=== PATIENT | female | born 1945 | race Caucasian/White ===

== ENCOUNTER 2020-10-04 09:27 | Outpatient (REF) | payer MEDICARE, SELFPAY ==
[2020-10-04 10:46] LABS: Baso%MD 0.7 %; Eos%MD 1.7 %; Hematocrit 40.4 % (37-47); Hemoglobin 12.1 g/dl (12.0-16.0); IG%MD 0.2 %; Lymph%MD 36.5 %; Mean Corpuscular Hemoglobin 24.8 pg (27.0-33.0); Mean Corpuscular Volume 82.8 fL (80-98); Mean Platelet Volume 9.5 fL (9.4-12.3); Mono%MD 8.9 %; Platelet Count 308 X10*3/uL (160-400); Red Blood Count 4.88 X10*6/uL (4.20-5.50); White Blood Count 5.9 X10*3/uL (4.8-10.8)
[2020-10-04 11:11] LABS: Alanine Aminotransferase 19 U/L (0-31); Albumin Level 4.2 g/dL (3.5-5.0); Alkaline Phosphatase 72 U/L (39-117); Anion Gap 15 (12-20); Aspartate Amino Transferase 19 U/L (5-31); Bilirubin Total 0.4 mg/dL (0.0-1.0); Blood Urea Nitrogen 22 mg/dL (9-16); Calcium 8.9 mg/dL (8.4-10.2); Carbon Dioxide 27 mmol/L (22-29); Chloride 105 mmol/L (96-108); Cholesterol 228 mg/dL; Estimated Glomerular Filt Rate 59; Glucose Fasting 95 mg/dL (60-99); HDL Cholesterol 37 mg/dL; LDL Cholesterol Calculated 155 mg/dl; Potassium 4.7 mmol/l (3.3-5.1); Sodium 142 mmol/L (135-145); Total Protein 7.6 g/dL (6.5-8.0); Triglycerides 183 mg/dL
[2020-10-04 11:33] LABS: Folate 16.8 ng/mL (> or = 4.0); Vitamin B12 485 pg/mL (200-900)
[2020-10-04 12:03] LABS: Eosinophils Absolute Manual 0.1 X10*3/UL (0.0-0.8); Eosinophils Percent Manual 1 % (0-4); Lymphocytes Percent Manual 34 % (20-40); Monocytes Absolute Manual 0.8 X10*3/uL (0.0-1.2); Monocytes Percent Manual 13 % (2-11); Neutrophils Percent Manual 52 % (45-73)
[2020-10-04 12:09] LABS: Platelet Estimate NORMAL (NORMAL); Platelet Morphology Comment NORMAL; RBC Morphology NORMAL
[2020-10-04 12:23] LABS: Band Neutrophils Percent 0 % (3-5); Neutrophils Absolute Manual 3.1 X10*3/uL (2.2-7.9)
== END 2020-10-04 09:28 | disposition home or self-care (01) ==
LOC: HO.LAB 09:27
PROVIDERS: PCP Internal Medicine; Visit Provider Internal Medicine
DX: D51.0 Vitamin B12 deficiency anemia due to intrinsic factor deficiency (principal); E78.2 Mixed hyperlipidemia
CPT/HCPCS: 36415; 80053; 80061; 82607; 82746; 85007; 85027

== ENCOUNTER 2020-12-19 15:38 | Outpatient (REF) | payer MEDICARE, SELFPAY ==
--- NOTE | ~2020-12-19 | MM_ITS ---
EXAMINATION: MM SCREENING DIGITAL BREAST TOMOSYNTHESIS, BILATERAL CLINICAL INFORMATION: Screening. Asymptomatic. The lifetime risk of breast cancer based on the Tyrer-Cuzick Model is 1.3%. COMPARISON: Mammography: July 27, 2019 and studies dating back to June 21, 2008 TECHNIQUE: Digital breast tomosynthesis is performed in both the craniocaudal and mediolateral oblique views along with computer-aided detection (CAD). Synthesized 2D images are generated from the tomosynthesis. FINDINGS: The breasts are almost entirely fatty (ACR BI-RADS breast composition Category a). There are no significant masses, abnormal calcifications, or other abnormalities. There are stable circumscribed densities bilaterally. MM/MM tomosynthesis screening BI IMPRESSION: There are no significant changes from prior study. ASSESSMENT: BI-RADS 1: Negative RECOMMENDATION: Routine annual mammography screening. This patient's information was entered into a reminder system with a target due date for their next mammogram.
== END 2020-12-19 15:39 | disposition home or self-care (01) ==
LOC: HO.MAMMO 15:38
PROVIDERS: Visit Provider Internal Medicine
DX: Z12.31 Encounter for screening mammogram for malignant neoplasm of breast (principal)
CPT/HCPCS: 77063; 77067

== ENCOUNTER 2021-05-30 08:39 | Outpatient (REF) | payer MEDICARE, SELFPAY ==
[2021-05-30 10:09] LABS: Alanine Aminotransferase 17 U/L (0-31); Albumin Level 4.1 g/dL (3.5-5.0); Alkaline Phosphatase 73 U/L (39-117); Anion Gap 16 (12-20); Aspartate Amino Transferase 19 U/L (5-31); Bilirubin Total 0.5 mg/dL (0.0-1.0); Blood Urea Nitrogen 19 mg/dL (9-16); Calcium 9.3 mg/dL (8.4-10.2); Carbon Dioxide 25 mmol/L (22-29); Chloride 107 mmol/L (96-108); Cholesterol 141 mg/dL; Estimated Glomerular Filt Rate 55; Glucose Fasting 106 mg/dL (60-99); HDL Cholesterol 32 mg/dL; LDL Cholesterol Calculated 86 mg/dl; Potassium 4.6 mmol/L (3.3-5.1); Sodium 143 mmol/L (135-145); Total Protein 7.3 g/dL (6.5-8.0); Triglycerides 118 mg/dL
[2021-05-30 10:51] LABS: Folate 19.6 ng/mL (> or = 4.0); Vitamin B12 772 pg/mL (200-900)
[2021-06-04 13:01] LABS: Vitamin D 25-OH, D2 <4 ng/mL; Vitamin D 25-OH, D3 29 ng/mL; Vitamin D 25-OH, Total 29 ng/mL (30-100)
== END 2021-05-30 08:40 | disposition home or self-care (01) ==
LOC: HO.LAB 08:39
PROVIDERS: PCP Internal Medicine; Visit Provider Internal Medicine
DX: E78.5 Hyperlipidemia, unspecified (principal); I10 Essential (primary) hypertension; E55.9 Vitamin D deficiency, unspecified; D51.0 Vitamin B12 deficiency anemia due to intrinsic factor deficiency
CPT/HCPCS: 36415; 80053; 80061; 82306; 82607; 82746

== ENCOUNTER 2021-08-31 08:39 | Outpatient (REF) | payer MEDICARE, SELFPAY ==
--- NOTE | ~2021-08-31 | XR_ITS ---
EXAMINATION: FL BARIUM SWALLOW XR THORACIC SPINE CLINICAL INFORMATION: Dysphagia. Thoracic spine pain. COMPARISON: None TECHNIQUE: Routine barium swallow was performed in upright and lying positions. Thoracic spine 3 views. FINDINGS: BARIUM SWALLOW: Following oral administration of thick barium and barium-coated turkey in upright view, there is normal propagation of the bolus from the oral cavity, pharynx, esophagus into stomach without laryngeal penetration or aspiration. There is tertiary peristalsis seen in the mid and distal esophagus. No hiatal hernia or reflux is seen in upright view. Fluoroscopy time: 1.3 minutes DAP: 8.212 Gycm2 Images: 34 THORACIC SPINE: There is maintained thoracic kyphosis. The vertebral height and alignment are normal. There is mild loss of disc height in the upper mid thoracic spine with moderate ventral spondylosis in the mid and lower dorsal spine. No fracture, lytic or sclerotic process is seen. XR/XR thoracic spine 2V IMPRESSION: Unremarkable upright barium swallow exam except for occasional tertiary peristalsis in the mid and distal esophagus. Moderate ventral spondylosis mid and lower dorsal spine.
== END 2021-08-31 08:40 | disposition home or self-care (01) ==
LOC: HO.XRAY 08:39
PROVIDERS: Visit Provider Internal Medicine
DX: R13.10 Dysphagia, unspecified (principal); M54.6 Pain in thoracic spine
CPT/HCPCS: 72070; 74220

== ENCOUNTER 2021-11-13 09:04 | Outpatient (REF) | payer MEDICARE, SELFPAY ==
[2021-11-13 09:31] LABS: MANUAL DIFF FLAG NO
[2021-11-13 09:45] LABS: Basophils Percent Auto 0.3 % (0-2); Eosinophils Absolute Auto 0.1 X10*3/uL (0.0-0.4); Eosinophils Percent Auto 1.6 % (0-4); Hematocrit 40.9 % (37.0-47.0); Hemoglobin 12.3 g/dl (12.0-16.0); Imm Gran Abs Auto 0.01 X10*3/uL (0.00-0.03); Imm Gran Pct Auto 0.2 % (0.0-0.4); Lymphocytes Absolute Auto 2.1 X10*3/uL (1.2-4.9); Lymphocytes Percent Auto 34.9 % (20-40); Mean Corpuscular HGB Conc 30.1 g/dl (31.0-35.0); Mean Corpuscular Hemoglobin 24.8 pg (27.0-33.0); Mean Corpuscular Volume 82.5 fL (80.0-98.0); Mean Platelet Volume 9.2 fL (9.4-12.3); Monocytes Absolute Auto 0.4 X10*3/uL (0.1-1.2); Monocytes Percent Auto 7.2 % (2-11); Neutrophils Absolute Auto 3.4 x10*3/uL (2.0-8.3); Neutrophils Percent Auto 55.8 % (45-73); Platelet Count 304 X10*3/uL (160-400); Red Blood Count 4.96 X10*6/uL (4.20-5.50); Red Cell Distribution Width 15.3 % (11.0-16.0); White Blood Count 6.1 X10*3/uL (4.8-10.8)
[2021-11-13 10:14] LABS: Alanine Aminotransferase 17 U/L (0-31); Albumin Level 4.2 g/dL (3.5-5.0); Alkaline Phosphatase 85 U/L (39-117); Anion Gap 13 (12-20); Aspartate Amino Transferase 16 U/L (5-31); Bilirubin Total 0.4 mg/dL (0.0-1.0); Blood Urea Nitrogen 26 mg/dL (9-16); Calcium 9.8 mg/dL (8.4-10.2); Carbon Dioxide 26 mmol/L (22-29); Chloride 107 mmol/L (96-108); Cholesterol 159 mg/dL; Estimated Glomerular Filt Rate 59; Glucose Fasting 101 mg/dL (60-99); HDL Cholesterol 33 mg/dL; LDL Cholesterol Calculated 96 mg/dl; Potassium 4.9 mmol/L (3.3-5.1); Sodium 141 mmol/L (135-145); Total Protein 7.8 g/dL (6.5-8.0); Triglycerides 151 mg/dL
[2021-11-13 10:53] LABS: Folate 18.1 ng/mL (> or = 4.0); Vitamin B12 817 pg/mL (200-900)
[2021-11-17 14:25] LABS: Vitamin D 25-OH, D2 <4 ng/mL; Vitamin D 25-OH, D3 37 ng/mL; Vitamin D 25-OH, Total 37 ng/mL (30-100)
== END 2021-11-13 09:05 | disposition home or self-care (01) ==
LOC: HO.LAB 09:04
PROVIDERS: PCP Internal Medicine; Visit Provider Internal Medicine
DX: D64.9 Anemia, unspecified (principal); E78.2 Mixed hyperlipidemia; E78.5 Hyperlipidemia, unspecified; E55.9 Vitamin D deficiency, unspecified; D51.0 Vitamin B12 deficiency anemia due to intrinsic factor deficiency
CPT/HCPCS: 36415; 80053; 80061; 82306; 82607; 82746; 85025

== ENCOUNTER 2021-11-19 15:13 | Outpatient (REF) | payer MEDICARE, SELFPAY ==
--- NOTE | ~2021-11-19 | US_ITS ---
EXAMINATION: US SOFT TISSUE NECK CLINICAL INFORMATION: Palpable lump over the skull. COMPARISON: Previous head CT most recent February 2019. Brain MRI February 2017. TECHNIQUE: Ultrasound of the scalp tissues is performed with high- frequency tay-scale imaging and color Doppler. FINDINGS: Palpable abnormality corresponds to a 1.3 x 1 x 0.6 cm hypoechoic lesion with posterior acoustic shadowing and well-demarcated anterior wall immediately adjacent to the skull. This is unchanged in size from previous head CT and brain MRI suggesting a benign finding. This may represent a complex cyst or epidermoid. US/US soft tiss head and/or neck IMPRESSION: 1.3 x 1 x 0.6 cm hypoechoic lesion with acoustic shadowing similar in size to previous old CT scans and brain MRI. This probably represents a complex sebaceous cyst or epidermoid.
== END 2021-11-19 15:14 | disposition home or self-care (01) ==
LOC: HO.US 15:13
PROVIDERS: PCP Internal Medicine; Visit Provider Nurse Practitioner Family
DX: R22.0 Localized swelling, mass and lump, head (principal)
CPT/HCPCS: 76536

== ENCOUNTER → 2021-12-12 09:40 | Outpatient (BNVA) | payer MEDICARE, SELFPAY | PROVIDERS: PCP Internal Medicine; Referring Provider Internal Medicine; Visit Provider Surgery | DX: R22.0 Localized swelling, mass and lump, head (principal) | CPT/HCPCS: 99202 ==

== ENCOUNTER 2021-12-25 08:27 | Outpatient (REF) | payer OTHER, SELFPAY ==
--- NOTE | ~2021-12-25 | MM_ITS ---
EXAMINATION: MM SCREENING DIGITAL BREAST TOMOSYNTHESIS, BILATERAL CLINICAL INFORMATION: Screening. Asymptomatic. The lifetime risk of breast cancer based on the Tyrer-Cuzick Model is 3%. COMPARISON: Mammography: 08/21/2021, 07/27/2019, 07/02/2018, 11/09/2016 TECHNIQUE: Digital breast tomosynthesis is performed in both the craniocaudal and mediolateral oblique views along with computer-aided detection (CAD). Synthesized 2D images are generated from the tomosynthesis. FINDINGS: There are scattered areas of fibroglandular density (ACR BI-RADS breast composition Category b). There are no significant masses, abnormal calcifications, or other abnormalities. There is chronic smooth nodule central left breast. The axilla and skin contours are unremarkable. No significant changes. MM/MM tomosynthesis screening BI IMPRESSION: No mammographic evidence of malignancy. ASSESSMENT: BI-RADS 2: Benign RECOMMENDATION: Routine annual mammography screening. This patient's information was entered into a reminder system with a target due date for their next mammogram.
== END 2021-12-25 08:28 | disposition home or self-care (01) ==
LOC: HO.MAMMO 08:27
PROVIDERS: PCP Internal Medicine; Visit Provider Internal Medicine
DX: Z12.31 Encounter for screening mammogram for malignant neoplasm of breast (principal)
CPT/HCPCS: 77063; 77067

== ENCOUNTER → 2022-01-01 09:00 | Outpatient (BNVA) | payer OTHER, SELFPAY | PROVIDERS: PCP Internal Medicine; Referring Provider Internal Medicine; Visit Provider Nurse Practitioner Family | DX: K59.01 Slow transit constipation (principal); K58.1 Irritable bowel syndrome with constipation; R13.19 Other dysphagia | CPT/HCPCS: 99202 ==

== ENCOUNTER → 2022-03-04 10:07 | Outpatient (BNVA) | payer MEDICARE, SELFPAY | PROVIDERS: PCP Internal Medicine; Visit Provider Nurse Practitioner Family | DX: Z01.818 Encounter for other preprocedural examination (principal); K58.1 Irritable bowel syndrome with constipation; K59.01 Slow transit constipation; R13.19 Other dysphagia | CPT/HCPCS: 99212 ==

== ENCOUNTER 2022-05-02 09:00 | Outpatient (REF) | payer OTHER, SELFPAY ==
--- NOTE | ~2022-05-02 | XR_ITS ---
EXAMINATION: XR humerus RT, XR shoulder RT min 2V CLINICAL INFORMATION: Reason for Exam M79.601 - Pain in right arm COMPARISON: None. TECHNIQUE: Four views of the shoulder and 2 views of the humerus XR/XR shoulder RT min 2V FINDINGS/IMPRESSION: * No acute fracture or dislocation. * Moderate osteophytosis of the shoulder worst involving the acromioclavicular joint with loss of joint space and to a lesser extent the glenohumeral joint. * No soft tissue abnormality.
--- NOTE | ~2022-05-02 | XR_ITS ---
EXAMINATION: XR humerus RT, XR shoulder RT min 2V CLINICAL INFORMATION: Reason for Exam M79.601 - Pain in right arm COMPARISON: None. TECHNIQUE: Four views of the shoulder and 2 views of the humerus XR/XR humerus RT FINDINGS/IMPRESSION: * No acute fracture or dislocation. * Moderate osteophytosis of the shoulder worst involving the acromioclavicular joint with loss of joint space and to a lesser extent the glenohumeral joint. * No soft tissue abnormality.
--- NOTE | ~2022-05-02 | XR_ITS ---
EXAMINATION: XR CHEST 2 VIEWS CLINICAL INFORMATION: Dyspnea. COMPARISON: None. TECHNIQUE: Frontal and lateral views of the chest were obtained. FINDINGS: The heart size is at least top normal. The great vessels, pulmonary vasculature and mediastinum are normal. No congestive heart failure is seen. The lungs show no focal infiltrate, effusion or pneumothorax. There is biapical pleural thickening. There is no acute osseous abnormality. There is multi-level thoracic spondylosis. XR/XR chest 2V IMPRESSION: No active cardiopulmonary disease.
[2022-05-02 11:17] LABS: Alanine Aminotransferase 15 U/L (0-31); Albumin Level 4.2 g/dL (3.5-5.0); Alkaline Phosphatase 81 U/L (39-117); Anion Gap 16 (12-20); Aspartate Amino Transferase 17 U/L (5-31); Bilirubin Total 0.4 mg/dL (0.0-1.0); Blood Urea Nitrogen 21 mg/dL (9-16); Calcium 9.1 mg/dL (8.4-10.2); Carbon Dioxide 25 mmol/L (22-29); Chloride 105 mmol/L (96-108); Cholesterol 233 mg/dL; Estimated Glomerular Filt Rate > 60; Glucose Fasting 94 mg/dL (60-99); HDL Cholesterol 36 mg/dL; LDL Cholesterol Calculated 161 mg/dl; Potassium 5.1 mmol/L (3.3-5.1); Sodium 141 mmol/L (135-145); Total Protein 7.7 g/dL (6.5-8.0); Triglycerides 181 mg/dL
[2022-05-02 11:38] LABS: Vitamin D 25-OH Total 35.1 ng/mL (>30)
[2022-05-02 13:49] LABS: Folate 18.5 ng/mL (> or = 4.0); Vitamin B12 1020 pg/mL (200-900)
== END 2022-05-02 09:01 | disposition home or self-care (01) ==
LOC: HO.XRAY 09:00
PROVIDERS: PCP Internal Medicine; Visit Provider Internal Medicine
DX: D51.0 Vitamin B12 deficiency anemia due to intrinsic factor deficiency (principal); E78.5 Hyperlipidemia, unspecified; I10 Essential (primary) hypertension; M25.511 Pain in right shoulder; R06.00 Dyspnea, unspecified; M79.601 Pain in right arm; E55.9 Vitamin D deficiency, unspecified
CPT/HCPCS: 36415; 71046; 73030; 73060; 80053; 80061; 82306; 82607; 82746

== ENCOUNTER 2022-05-02 11:46 | Emergency (ER) | payer OTHER, SELFPAY ==
--- NOTE | ~2022-05-02 | CT_ITS ---
EXAMINATION: CT HEAD WITHOUT CONTRAST CLINICAL INFORMATION: Numbness in face. Dizziness. COMPARISON: CT head 02/23/2019 TECHNIQUE: Contiguous axial imaging was performed from the skull base to vertex without intravenous administration of contrast. Coronal and sagittal reformatted images are performed at CT scanner This CT examination was performed using dose optimization techniques as appropriate, variously including the following: *Automated exposure control *Adjustment of mA and/or kV according to patient size (this includes techniques or standardized protocols for targeted exams where dose is matched to indication/reason for exam; i.e. extremities or head) *Use of iterative reconstruction technique DLP: 657 mGy-cm FINDINGS: Focal encephalomalacia from old infarct in left parietal lobe unchanged since CAT scan 02/23/2019. There is no evidence of acute intracranial hemorrhage or acute territorial infarction. No abnormal mass effect or midline shift is seen. Quezada to white matter differentiation is well preserved. No extra-axial fluid collections are identified. There is generalized global volume loss. There is moderate prominence of the ventricles and the sulci . There is mild hypodensity of the periventricular white matter due to chronic small vessel ischemic disease. There are vascular calcifications of the internal carotid arteries bilaterally. The osseous structures and soft tissues are normal. The mastoid air cells and visualized portions of the paranasal sinuses are well aerated. CT/CT head/brain wo con IMPRESSION: No acute intracranial pathology.
[2022-05-02 12:07] VITALS: BP 180/81; PULSE 75; RESP 18; TEMP 36.8; O2SAT 96; BMI 34.7
[2022-05-02 12:22] LABS: Hematocrit 40.5 % (37.0-47.0); Hemoglobin 12.6 g/dl (12.0-16.0); Mean Corpuscular HGB Conc 31.1 g/dl (31.0-35.0); Mean Corpuscular Hemoglobin 25.3 pg (27.0-33.0); Mean Corpuscular Volume 81.3 fL (80.0-98.0); Platelet Count 302 X10*3/uL (160-400); Red Blood Count 4.98 X10*6/uL (4.20-5.50); Red Cell Distribution Width 15.4 % (11.0-16.0); White Blood Count 7.6 X10*3/uL (4.8-10.8)
[2022-05-02 12:35] LABS: Anion Gap 14 (12-20); Blood Urea Nitrogen 21 mg/dL (9-16); Calcium 9.1 mg/dL (8.4-10.2); Carbon Dioxide 23 mmol/L (22-29); Chloride 106 mmol/L (96-108); Creatinine Clr Calc Pharmacy 60.9; Estimated Glomerular Filt Rate > 60; Glucose Random 109 mg/dL (60-115); Potassium 4.4 mmol/L (3.3-5.1); Sodium 139 mmol/L (135-145)
[2022-05-02 14:15] VITALS: BP 188/69
--- NOTE | 2022-05-02 14:28 | ECG_ITS ---
Test Reason : HYPERTENTION Blood Pressure : / mmHG Vent. Rate : 061 BPM Atrial Rate : 061 BPM P-R Int : 178 ms QRS Dur : 096 ms QT Int : 388 ms P-R-T Axes : 063 057 069 degrees QTc Int : 390 ms Normal sinus rhythm Normal ECG When compared with ECG of 26-OCT-2017 10:44, No significant change was found Referred By: Monroe Riojas Electronically Signed By:KARLI FRANCISCO
--- NOTE | 2022-05-02 14:31 | ED.GENADULT ---
HPI - General Adult General Chief complaint: Headache Stated complaint: HBP Time Seen by Provider: 05/02/22 14:20 Source: patient and family (sister) Mode of arrival: ambulatory Limitations: no limitations History of Present Illness HPI narrative: This is a 76 years old very pleasant patient with history of hypertension presented with a chief complaint elevated BP, mild headache, she states that today he did not take the blood pressure medication before she was supposed to get the fasting blood work ordered by the PCP. She is ambulatory with sister, denies any loss of breath she states that she has perioral tingling as well. Onset (ago): day(s) (1) Location: head Radiation: non-radiation Severity: mild Quality: burning Pain Consistency: constant Relieving factors: none Exacerbating factors: none Related Data Home Medications Medication Instructions Recorded Confirmed buspirone 5 mg tablet 5 mg PO BID 08/14/20 04/29/22 paroxetine HCl 20 mg tablet 20 mg PO DAILY 08/14/20 04/29/22 Previous Rx's Medication Instructions Recorded aspirin 81 mg tablet,delayed 81 mg PO DAILY 30 days #30 tabs 06/30/21 release cholecalciferol (vitamin D3) 50 50 mcg PO DAILY #28 tabs 08/29/21 mcg (2,000 unit) tablet losartan 50 mg tablet 50 mg PO DAILY #28 tabs 08/29/21 acetaminophen 650 mg 1,300 mg PO Q8H PRN pain #100 tabs 11/14/21 tablet,extended release (8HR Muscle Aches-Pain) albuterol sulfate 90 mcg/actuation 2 puff inhalation Q4H PRN 11/14/21 aerosol inhaler (Ventolin HFA) bronchospasm #18 grams atorvastatin 80 mg tablet 80 mg PO BEDTIME 90 days #90 tabs 11/14/21 fluticasone propionate 50 1 spray intranasal BID #16 grams 11/14/21 mcg/actuation nasal spray,suspension docusate sodium 100 mg capsule 100 mg PO DAILY 90 days #90 caps 12/04/21 (Colace) amlodipine 10 mg tablet 10 mg PO QAM #28 tabs 12/24/21 cyanocobalamin (vitamin B-12) 1,000 mcg IM .Q1 MONTH 30 days #1 01/08/22 1,000 mcg/mL injection solution mL meclizine 25 mg tablet 25 mg PO TID #84 tabs 02/19/22 bisacodyl 5 mg tablet,delayed 10 mg PO ONCE 1 day #2 tabs 03/20/22 release (Dulcolax (bisacodyl)) polyethylene glycol 3350 17 238 g PO ONCE #238 grams 03/20/22 gram/dose oral powder (Miralax) sumatriptan succinate 50 mg tablet 50 mg PO Q2-4H PRN migraine 04/17/22 headache 30 days #9 tabs sennosides 8.6 mg tablet (Natural 17.2 mg PO BEDTIME constipation 04/19/22 Senna Laxative) #60 tabs Allergies Allergy/AdvReac Type Severity Reaction Status Date / Time lisinopril Allergy Intermediate rash, hives Verified 04/29/22 09:20 Review of Systems Constitutional: Constitutional: Reports no additional constitutional complaints Eyes: Eyes: Reports no additional eye complaints ENT: Reports system reviewed and no additional complaints, except as documented Cardiovascular: Cardiovascular: Reports no additional cardiovascular complaints Respiratory: Respiratory: Reports no additional respiratory complaints PMFSH Past Medical History Medical History CVA (cerebral vascular accident) Depression with anxiety Dysphagia Essential hypertension WANDA (generalized anxiety disorder) Hand pain Migraines Mild asthma Mild recurrent major depression Mixed hyperlipidemia Pernicious anemia Thoracic spine pain Vertigo Surgical History History of 2 sections History of partial hysterectomy Family History Family History Father No problems noted. Mother Hypertension Sister Emphysema lung Daughter Diabetes Social History Social History Housing: Apartment Alcohol intake: never Patient Tobacco Use Status: Former Tobacco user Tobacco use type: Cigarette Years Smoked: 20 years e-Cigarette/Vaping Use: Never Used Second Hand Smoke Exposure: No Advance Directives: No Advance Directives Information Provided: No service: No Current occupational status: disabled Cognitive needs: Yes (walker/cane) Hearing needs: No Vision needs: No Physical Exam ED Vital Signs: Vital Signs - 24 hr 05/02/22 12:07 05/02/22 14:15 05/02/22 14:40 Temperature 98.2 F Pulse Rate 75 61 Respiratory Rate 18 18 Blood Pressure 180/81 H 188/69 H 169/83 H Pulse Oximetry 96 96 Oxygen Delivery Method Room Air Room Air 05/02/22 15:37 05/02/22 16:42 Temperature 97.5 F Pulse Rate 62 60 Respiratory Rate 18 16 Blood Pressure 154/82 H 169/78 H Pulse Oximetry 95 95 Oxygen Delivery Method Room Air Room Air BMI result Body Mass Index 34.7 She looks well she has no toxic-appearing Const General: cooperative, no acute distress, well developed, alert and awake Nutritional Appearance: well nourished Orientation/consciousness: oriented to person and patient oriented x3 Limitations: no limitations HENMT Head: Yes normal to inspection Ears: hearing grossly normal bilaterally General nose exam: Normal external nose present Face and sinus: Yes normal facial exam Eyes Conjunctivae: conjunctivae normal Sclerae: sclerae normal Neck Neck: Yes normal visual inspection and Yes full ROM Chest Chest palpation & inspection: normal inspection of the chest Resp Effort & Inspection: normal respiratory effort Auscultation: clear to auscultation bilaterally Cardio Jugular venous distension: no JVD Rate: regular rate Rhythm: regular rhythm GI Inspection: Yes normal to inspection Palpation (GI): Soft to palpation Percussion: Yes normal to percussion Auscultation: normal bowel sounds Skin General skin exam: no rashes or lesions noted, elasticity normal and turgor normal Lesions: no lesions Rashes: no rashes Neuro General: oriented to person, patient oriented x3, no focal motor deficits and CN's II-XI intact bilaterally Cranial nerves: Yes CN's II-XII intact bilaterally Cognition (Neuro): normal cognition Course Reevaluation(s) Reevaluation #1: SHE IS FEELING MUCH BETTER NOW, HEAD CT IS NEGATIVE, ELECTROCARDIOGRAM IS WITHIN NORMAL LIMITS, HIGH SENSITIVE TROPONIN IS NEGATIVE AT THIS POINT WILL DISCHARGE THE PATIENT HOME Medical Decision Making MDM Narrative Medical decision making narrative: we will obtain an electrocardiogram we will do a head CT will administer Norvasc and losartan wich usually takes a daily Lab Data Result diagrams: 05/02/22 12:13 05/02/22 12:13 Labs: Lab Results 05/02/22 05/02/22 05/02/22 Range/Units 12:13 12:13 15:23 WBC 7.6 (4.8-10.8) X10*3/uL RBC 4.98 (4.20-5.50) X10*6/uL Hgb 12.6 (12.0-16.0) g/dl Hct 40.5 (37.0-47.0) % MCV 81.3 (80.0-98.0) fL MCH 25.3 L (27.0-33.0) pg MCHC 31.1 (31.0-35.0) g/dl RDW 15.4 (11.0-16.0) % Plt Count 302 (160-400) X10*3/uL MPV 9.0 L (9.4-12.3) fL Absolute Nucleated RBC 0.000 (0.0-0.012) X10*3/uL Nucleated RBC % (auto) 0.0 (0.0-0.2) /100WBC Sodium 139 (135-145) mmol/L Potassium 4.4 (3.3-5.1) mmol/L Chloride 106 (96-108) mmol/L Carbon Dioxide 23 (22-29) mmol/L Anion Gap 14 (12-20) BUN 21 H (9-16) mg/dL Creatinine 0.88 (0.5-1.4) mg/dL Estim Creat Clear Calc 60.9 Estimated GFR > 60 Random Glucose 109 (60-115) mg/dL Calcium 9.1 (8.4-10.2) mg/dL Troponin I High Sens < 3.5 (<3.5-17.0) ng/L ECG Data Interpretation: Focal encephalomalacia from old infarct in left parietal lobe unchanged since CAT scan 02/23/2019. There is no evidence of acute intracranial hemorrhage or acute territorial infarction. No abnormal mass effect or midline shift is seen. Quezada to white matter differentiation is well preserved. No extra-axial fluid collections are identified. There is generalized global volume loss. There is moderate prominence of the ventricles and the sulci . There is mild hypodensity of the periventricular white matter due to chronic small vessel ischemic disease. There are vascular calcifications of the internal carotid arteries bilaterally. The osseous structures and soft tissues are normal. The mastoid air cells and visualized portions of the paranasal sinuses are well aerated. ? CT/CT head/brain wo con IMPRESSION: No acute intracranial pathology. Dictated By: Sj Ramon MD Signed By: <Electronically signed by Sj Ramon MD in OV> 05/02/22 1648 DD/ 1600 TD/TT:? Academic Affairs Manager: MARIA A Pacemaker model: normal sinus rhythm rate [address]-T changes Discharge Plan Discharge Clinical Impression: Hypertension Patient Disposition: Home, Self-Care Instructions: Hypertension (ED) Additional Instructions: FOLLOW-UP WITH YOUR PRIMARY CARE PHYSICIAN RETURN IF YOU WORSE ANY CONCERN Prescriptions: No Action aspirin 81 mg tablet,delayed release (DR/EC) 81 mg PO DAILY 30 Days Qty: 30 11RF losartan 50 mg tablet 50 mg PO DAILY Qty: 28 11RF cholecalciferol (vitamin D3) 50 mcg (2,000 unit) tablet 50 mcg PO DAILY Qty: 28 11RF albuterol sulfate [Ventolin HFA] 90 mcg/actuation HFA aerosol inhaler 2 puff inhalation Q4H PRN (Reason: bronchospasm) Qty: 18 6RF fluticasone propionate 50 mcg/actuation spray,suspension 1 spray intranasal BID Qty: 16 6RF atorvastatin 80 mg tablet 80 mg PO BEDTIME 90 Days Qty: 90 3RF acetaminophen [8HR Muscle Aches-Pain] 650 mg tablet extended release 1,300 mg PO Q8H PRN (Reason: pain) Qty: 100 6RF amlodipine 10 mg tablet 10 mg PO QAM Qty: 28 6RF meclizine 25 mg tablet 25 mg PO TID Qty: 84 3RF polyethylene glycol 3350 [Miralax] 17 gram/dose powder 238 g PO ONCE Qty: 238 0RF Rx Instructions: As directed by gastroenterology department at [facility] bisacodyl [Dulcolax (bisacodyl)] 5 mg tablet,delayed release (DR/EC) 10 mg PO ONCE 1 Days Qty: 2 0RF Rx Instructions: take 2 tabs at noon the day before your colonoscopy sumatriptan succinate 50 mg tablet 50 mg PO Q2-4H PRN (Reason: migraine headache) 30 Days Qty: 9 1RF Rx Instructions: do not exceed 4 doses per 24 hrs sennosides [Natural Senna Laxative] 8.6 mg tablet 17.2 mg PO BEDTIME Qty: 60 1RF paroxetine HCl 20 mg tablet 20 mg PO DAILY buspirone 5 mg tablet 5 mg PO BID docusate sodium [Colace] 100 mg capsule 100 mg PO DAILY 90 Days Qty: 90 1RF cyanocobalamin (vitamin B-12) 1,000 mcg/mL solution 1,000 mcg IM .Q1 MONTH 30 Days Qty: 1 6RF Referrals: Leticia Sanders MD [Primary Care Provider] - 2 days
[2022-05-02] MEDS: amLODIPine Besylate 10 MG TABLET PO (14:39)
[2022-05-02] MEDS: Losartan Potassium 50 MG TABLET PO (14:39)
[2022-05-02 14:40] VITALS: BP 169/83; PULSE 61; RESP 18; O2SAT 96
[2022-05-02 15:37] VITALS: BP 154/82; PULSE 62; RESP 18; O2SAT 95
[2022-05-02 15:51] LABS: Troponin-I High Sensitivity < 3.5 ng/L (<3.5-17.0)
[2022-05-02 16:42] VITALS: BP 169/78; PULSE 60; RESP 16; TEMP 36.4; O2SAT 95
[2022-05-02 17:08] VITALS: BP 165/76
--- NOTE | 2022-05-02 17:09 | PC.NURSE ---
Dr. Riojas aware of patients blood pressure.
== END 2022-05-02 17:10 | disposition home or self-care (01) ==
PROVIDERS: Emergency Provider Emergency Medicine; PCP Internal Medicine
DX: I10 Essential (primary) hypertension (principal); R51.9 Headache, unspecified; E78.2 Mixed hyperlipidemia; Z87.891 Personal history of nicotine dependence; Z79.02 Long term (current) use of antithrombotics/antiplatelets; Z79.899 Other long term (current) drug therapy
CPT/HCPCS: 36415; 70450; 80048; 84484; 85027; 93005; 99283; 99284